=== PATIENT | female | born 1935 | race Hispanic/Latino ===

== ENCOUNTER 2019-05-23 13:07 | Outpatient (CLI) | payer MEDICARE, OTHER ==
--- NOTE | 2019-05-23 15:06 | ULT ---
EXAM: LEFT LOWER EXTREMITY ARTERIAL VASCULAR DUPLEX WITH COLOR AND SPECTRAL DOPPLER IMAGIN05/23/19 HISTORY: Left lower extremity peripheral artery disease. Prior right lower extremity amputation. 2 x 3.9 cm diameter somewhat complicated appearing cystic focus in the left inguinal region. I am not certain as to the exact etiology of this. Conceivably this could represent some type of a lymphocele or other mostly cystic mass. Conceivably this could represent residual from a pseudoaneurysm althoug h there is no evidence for blood flow within this region to suggest an active pseudoaneurysm. Examination is performed from the groin to the ankle including common femoral artery, superficial fem oral artery, popliteal artery, anterior tibial artery, posterior tibial artery, and dorsalis pedis ar [place]. There is atherosclerotic calcified plaque seen throughout the left lower extremity artery. There is b iphasic flow at the level of the common femoral and proximal superficial femoral artery and profunda femoral artery. No documented flow within the mid superficial femoral artery, distal superficial femo ral artery with reconstitution and monophasic flow at the level of the popliteal artery and down to t he level of the ankle including the anterior tibial artery, dorsalis pedis artery, and posterior tibi al artery. IMPRESSION: Evidence for an area of complete occlusion in the region of the superficial femoral artery with some reconstitution and monophasic flow below this level. A 2.0 x 3.9 cm diameter somewhat complicated ap pearing circumscribed cyst or fluid collection in the left inguinal region, of uncertain etiology or significance. Consider follow-up abdominal and lower extremity CT angiogram for further assessment de pending upon clinical concern. POS: STEVIE
== END 2019-05-23 13:08 | disposition home or self-care (01) ==
LOC: NAV ULT 13:07
PROVIDERS: ATTEND Internal Medicine
DX: I73.9 Peripheral vascular disease, unspecified (principal); I70.292 Other atherosclerosis of native arteries of extremities, left leg
CPT/HCPCS: 93923

== ENCOUNTER 2020-04-10 20:59 | Emergency (ER) | payer MEDICARE, MEDICAID | END 2020-04-10 22:12 | disposition home or self-care (01) | LOC: NAV ERS 20:59 | DX: T82.838A Hemorrhage due to vascular prosthetic devices, implants and grafts, initial encounter (principal); I12.0 Hypertensive chronic kidney disease with stage 5 chronic kidney disease or end stage renal disease; N18.6 End stage renal disease; Z79.4 Long term (current) use of insulin; Z79.899 Other long term (current) drug therapy | CPT/HCPCS: 99283 ==

== ENCOUNTER 2021-03-08 19:06 | Emergency (ER) | payer MEDICARE, MEDICAID | END 2021-03-08 20:20 | disposition home or self-care (01) | LOC: NAV ERS 19:06 | DX: S82.832A Other fracture of upper and lower end of left fibula, initial encounter for closed fracture (principal); I25.10 Atherosclerotic heart disease of native coronary artery without angina pectoris; I12.0 Hypertensive chronic kidney disease with stage 5 chronic kidney disease or end stage renal disease; N18.6 End stage renal disease; Z99.2 Dependence on renal dialysis; E11.22 Type 2 diabetes mellitus with diabetic chronic kidney disease; Z79.899 Other long term (current) drug therapy; X50.9XXA Other and unspecified overexertion or strenuous movements or postures, initial encounter | CPT/HCPCS: 29515 ==

== ENCOUNTER 2021-03-14 14:14 | Emergency (ER) | payer MEDICARE, MEDICAID | END 2021-03-14 15:05 | disposition home or self-care (01) | LOC: NAV ERS 14:14 | DX: S82.892A Other fracture of left lower leg, initial encounter for closed fracture (principal); I12.0 Hypertensive chronic kidney disease with stage 5 chronic kidney disease or end stage renal disease; E11.22 Type 2 diabetes mellitus with diabetic chronic kidney disease; N18.6 End stage renal disease; I25.10 Atherosclerotic heart disease of native coronary artery without angina pectoris; Z79.02 Long term (current) use of antithrombotics/antiplatelets; Z79.4 Long term (current) use of insulin | CPT/HCPCS: 29515 ==